=== PATIENT | female | born 1945 | race Caucasian/White ===

== ENCOUNTER 2016-11-01 23:13 | Emergency (ER) | payer MEDICARE, OTHER ==
[2016-11-01 23:48] LABS: HEMATOCRIT 39.4 % (36.0-48.0); HEMOGLOBIN 13.4 g/dL (12-16); LYMPHOCYTES 34.1 % (15-50); MCH 30.6 pg (26.0-34.0); MEAN PLATELET VOLUME 9.9 fL (7.4-10.4); PLATELET COUNT 242 10x3/uL (130-400); RBC 4.38 10x6/uL (4.00-5.40); RDW 12.9 % (11.5-14.5); WBC 9.4 10x3/uL (4.8-10.8)
[2016-11-01 23:56] LABS: APPEARANCE HAZY (CLEAR); BILIRUBIN NEGATIVE (NEGATIVE); COLOR STRAW (YELLOW); GLUCOSE NEGATIVE (NEGATIVE); KETONE NEGATIVE (NEGATIVE); LEUKOCYTE ESTERASE 2+ (NEGATIVE); NITRITE NEGATIVE (NEGATIVE); PROTEIN NEGATIVE (NEGATIVE); SPECIFIC GRAVITY 1.005 (1.005-1.020); UROBILINOGEN NORMAL (NORMAL)
[2016-11-01 23:57] LABS: BACTERIA MODERATE /hpf (NONE SEEN); EPITHELIAL CELLS 0-5 /hpf (0-5); RED CELLS - URINE 0-5 /hpf (0-5)
[2016-11-02 00:14] LABS: ALBUMIN 3.4 g/dL (3.4-5.0); ANION GAP 11.2 mmol/L (8-16); BILIRUBIN - TOTAL 0.37 mg/dL (0.2-1.3); CREATININE - SERUM 0.9 mg/dL (0.6-1.3); POTASSIUM - SERUM 3.2 mmol/L (3.5-5.1); PROTEIN - SERUM 7.3 g/dL (6.4-8.2)
== END 2016-11-02 00:34 | disposition home or self-care (01) ==
LOC: D.ER 23:13
PROVIDERS: Emergency Medicine
DX: R10.13 Epigastric pain (principal); K20.9 Esophagitis, unspecified

== ENCOUNTER 2017-05-16 07:30 | Day surgery (SDC) | payer MEDICARE, OTHER ==
[2017-05-15 08:35] LABS: HEMATOCRIT 39.9 % (36.0-48.0); HEMOGLOBIN 13.4 g/dL (12-16); MCH 31.3 pg (26.0-34.0); MCHC 33.6 g/dL (31.0-37.0); MCV 93.2 fL (80.0-100.0); MEAN PLATELET VOLUME 10.5 fL (7.4-10.4); RBC 4.28 10x6/uL (4.00-5.40); WBC 7.7 10x3/uL (4.8-10.8)
[2017-05-15 09:17] LABS: CALC OSMOLALITY 276 mosm/kg (275-300); CALCIUM 8.6 mg/dL (8.5-10.1); CARBON DIOXIDE 30.2 mmol/L (21.0-32.0); CHLORIDE - SERUM 105 mmol/L (98-107); CREATININE - SERUM 0.7 mg/dL (0.6-1.3); GLUCOSE 87 mg/dL (74-106); POTASSIUM - SERUM 4.2 mmol/L (3.5-5.1); SODIUM 140 mmol/L (136-145); UREA NITROGEN 11 mg/dL (7-18); eGFR NON AFRICAN AMERICAN 87 mL/min (90-120)
[~2017-05-16] VITALS: Ht 165.1 cm; Wt 73.9 kg
[~2017-05-16 07:30] MED LIST: ASPIRIN EC81 M1 PO; BENADRYL25 MG PO; CLARITIN 10 MG10 MG PO; FLAXSEED OIL1000 MG PO; HYDROCHLOROTH12.5 M1 PO; MECLIZINE HCL25 MG PO; METAMUCIL FIB1 WAFER PO; PROTONIX40 MG PO; ULTRAM50 MG PO
[2017-05-16 08:30] VITALS: BP 143/68; Ht 165.1 cm; Wt 73.9 kg
[2017-05-16] MEDS ORDERED: MEPERIDINE HCL50 MG PO (12:39)
== END 2017-05-16 18:00 | disposition home or self-care (01) ==
LOC: D.OPS 07:30 → D.PAN 08:00 → D.OPS 08:00
PROVIDERS: Anesthesiology
DX: K80.20 Calculus of gallbladder without cholecystitis without obstruction (principal); I48.91 Unspecified atrial fibrillation; Z01.812 Encounter for preprocedural laboratory examination

== ENCOUNTER → 2017-06-25 22:35 | Outpatient (CLI) | payer MEDICARE, OTHER ==
[2017-05-16 08:30] VITALS: BMI 27.1
[~2017-06-25 22:35] MED LIST changes: +MEPERIDINE HCL50 MG PO
== END | disposition home or self-care (01) ==
LOC: D.MAMMO 06-06 11:00
DX: Z12.31 Encounter for screening mammogram for malignant neoplasm of breast (principal)

== ENCOUNTER → 2017-07-11 12:24 | Outpatient (CLI) | payer MEDICARE, OTHER ==
[2017-05-16 08:30] VITALS: BMI 27.1
== END | disposition home or self-care (01) ==
LOC: D.CT 12:24
DX: M54.16 Radiculopathy, lumbar region (principal)

== ENCOUNTER → 2017-07-20 10:00 | Outpatient (CLI) | payer MEDICARE, OTHER ==
[2017-05-16 08:30] VITALS: BMI 27.1
== END | disposition home or self-care (01) ==
LOC: D.MAMMO 07-19 14:00 → D.US 07-19 15:00 → D.MAMMO 10:00
DX: R92.8 Other abnormal and inconclusive findings on diagnostic imaging of breast (principal)

== ENCOUNTER → 2017-09-14 09:36 | Outpatient (CLI) | payer MEDICARE, OTHER ==
[2017-05-16 08:30] VITALS: BMI 27.1
== END | disposition home or self-care (01) ==
LOC: D.MRI 09-07 10:00
DX: M25.512 Pain in left shoulder (principal)

== ENCOUNTER 2020-06-25 11:00 | Outpatient (CLI) | payer MEDICARE, BC ==
[2017-05-16 08:30] VITALS: BMI 27.1
== END 2020-06-25 23:59 | disposition home or self-care (01) ==
LOC: D.MAMMO 11:00
PROVIDERS: ATTEND Family Medicine
DX: Z12.31 Encounter for screening mammogram for malignant neoplasm of breast (principal)